=== PATIENT | female | born 1995 | race Caucasian/White ===

== ENCOUNTER → 2018-01-03 | Outpatient (CLI) | payer BC, OTHER ==
[2018-01-03 13:03] LABS: Glucose 3 Hour, Gest 148 mg/dL
== END | disposition home or self-care (01) ==
LOC: LABWHC1 08:39
PROVIDERS: ATTEND Obstetrics & Gynecology
DX: Z34.82 Encounter for supervision of other normal pregnancy, second trimester (principal); Z3A.00 Weeks of gestation of pregnancy not specified
CPT/HCPCS: 36415; 82951; 82952

== ENCOUNTER 2018-03-25 05:46 | Inpatient (IN) | payer BC ==
--- NOTE | 2018-03-25 06:08 | P.HPOB ---
History of Present Illness H&P Date: 03/25/18 Chief Complaint: Patient is requesting induction of labor. This patient is a pleasant 23-year-old 3 para 2 female estimated date of confinement 03/28/2018 estimated gestational age 39-4/7 weeks who presents to labor and delivery for requested induction of labor. Patient's care has been complicated by gestational diabetes however she has not required any medication and only diet control. Patient's been followed by maternal medicine and has had normal ultrasounds and testing. Patient is now requesting induction of labor at term with favorable cervix. Review of Systems Constitutional: Denies chills, Denies fever Ears, nose, mouth and throat: Denies headache, Denies sore throat Gastrointestinal: Reports heartburn Genitourinary: Reports Menstruation: Reports amenorrhea Past Medical History Past Medical History: No Reported History Additional Past Medical History / Comment(s): Obstetrical history: Patient has had 2 vaginal deliveries 6 lbs. 9 oz. and 8 lbs. 5 oz. History of Any Multi-Drug Resistant Organisms: None Reported Past Surgical History: No Surgical Hx Reported Past Anesthesia/Blood Transfusion Reactions: No Reported Reaction Past Psychological History: Anxiety Smoking Status: Former smoker Past Alcohol Use History: None Reported Past Drug Use History: None Reported Medications and Allergies Home Medications Medication Instructions Recorded Confirmed Type Control 1 tab PO DAILY 06/11/14 06/11/14 History methylPREDNISolone [Medrol] 4 mg PO DIRECTED #1 tab.ds.pk 06/11/14 Rx Allergies Allergy/AdvReac Type Severity Reaction Status Date / Time No Known Allergies Allergy Verified 06/11/14 01:53 Exam - OBG Physical Exam Abdomen: bowel sounds normal, no diffuse tenderness, no bruit present, no guarding noted, no hepatomegaly, no splenomegaly, no mass Vulva: both: normal Vagina: normal moisture, no discharge Cervix: Cervix most recently in the office was 2 cm dilated and 60% effaced. Cervix: no lesion, no discharge Uterus: enlarged (Fundal height is 39 cm.) Results blood work shows she is A positive, Rubella immune, RPR nonreactive, hepatitis B negative, HIV nonreactive, Glucola was 156 with an abnormal 3 hour gtt. Group B strep was negative. Ultrasounds have been normal. Most recent ultrasound 1 week ago showed estimated weight at 8 pounds. Assessment and Plan Assessment: This is a pleasant 23-year-old 3 para 2 female 39-4/7 weeks gestation who presents to labor and delivery for requested induction of labor. Plan is induction of labor and anticipate vaginal delivery. (1) Third trimester Current Visit: Yes Status: Acute Code(s): Z34.93 - ENCNTR FOR SUPRVSN OF NORMAL PREG, UNSP, THIRD TRIMESTER SNOMED Code(s): 06422163 (2) Gestational diabetes Current Visit: Yes Status: Acute Code(s): O24.419 - GESTATIONAL DIABETES MELLITUS IN , UNSP CONTROL SNOMED Code(s): 06334285 (3) Elective induction of labor planned Current Visit: Yes Status: Acute Code(s): BDY8790 - SNOMED Code(s): 954765184
[2018-03-25] MEDS ORDERED: METHYLERGONOVINE 0.2 MG/ML 1 ML AMP IM PRN (06:10)
[2018-03-25] MEDS ORDERED: TERBUTALINE 1 MG/ML VIAL SQ PRN (06:10)
[2018-03-25] MEDS ORDERED: CARBOPROST TROMETHAMINE 250 MCG/ML 1 ML AMP IM PRN (06:10)
[2018-03-25] MEDS ORDERED: LIDOCAINE 1% (PF) 10 MG/ML (30 ML SDV) SQ PRN (06:10)
[2018-03-25] MEDS ORDERED: OXYTOCIN 20 UNITS/1000 ML NS 1,000 ML IV SCH ×2 (06:10→16:57)
[2018-03-25] MEDS ORDERED: OXYTOCIN 10 UNIT/ML 1 ML VIAL IM PRN (06:10)
[2018-03-25] MEDS: LACTATED RINGERS 1,000 ML IV SCH ×3 (06:20→12:55)
[2018-03-25 06:24] LABS: Basophils % (A) 0 %; Eosinophils # (A) 0.2 k/uL (0-0.7); Eosinophils % (A) 2 %; HCT 35.9 % (34.0-46.0); HGB 12.3 gm/dL (11.4-16.0); Lymphocytes # (A) 2.2 k/uL (1.0-4.8); Lymphocytes % (A) 23 %; MCH 31.5 pg (25.0-35.0); MCHC 34.3 g/dL (31.0-37.0); MCV 91.9 fL (80.0-100.0); Mean Platelet Volume 7.7; Monocytes # (A) 0.5 k/uL (0-1.0); Monocytes % (A) 5 %; Neutrophils # (A) 6.5 k/uL (1.3-7.7); Neutrophils % (A) 68 %; Platelet Count 173 k/uL (150-450); Poikilocytosis Moderate; RBC 3.91 m/uL (3.80-5.40); RDW 15.3 % (11.5-15.5); WBC 9.5 k/uL (3.8-10.6)
[2018-03-25 06:35] LABS: Glucose,Whole Blood 87 mg/dL (75-99)
[2018-03-25 12:50] LABS: Hemoglobin A1C 4.2 % (4.0-6.0)
[2018-03-25] MEDS ORDERED: ROPIVACAINE 100 MG, fentaNYL (PF) 200 MCG in SODIUM CHLORIDE 0.9% 76 ML EPIDURAL ONE (13:04)
[2018-03-25] MEDS ORDERED: BUPIVACAINE (PF) 0.25% 30 ML VIAL ONE (13:05)
[2018-03-25] MEDS ORDERED: SODIUM CHLORIDE 0.9% 100 ML BAG ONE (13:05)
[2018-03-25] MEDS ORDERED: fentaNYL (PF) 50 MCG/ML 5 ML AMP ONE (13:05)
[2018-03-25] MEDS ORDERED: DIPH,PERTUS(ACELL)TETVAC-LF 0.5 ML VIAL IM ONE (13:10)
[2018-03-25] MEDS ORDERED: SIMETHICONE 80 MG CHEWABLE PO PRN (16:57)
[2018-03-25] MEDS ORDERED: HYDROCORTISONE 2.5% RECTAL CREAM 30 GM TUBE RECTAL PRN (16:57)
[2018-03-25] MEDS ORDERED: diphenhydrAMINE 25 MG CAP PO PRN (16:57)
[2018-03-25] MEDS ORDERED: ACETAMINOPHEN TAB 325 MG TAB PO PRN (16:57)
[2018-03-25] MEDS ORDERED: WITCH HAZEL 1 EACH MED..PAD TOPICAL PRN (16:57)
[2018-03-25] MEDS ORDERED: ZOLPIDEM 5 MG TAB PO PRN (16:57)
[2018-03-25] MEDS ORDERED: BENZOCAINE/MENTHOL SPRAY 1 GM/SPRAY AEROSOL TOPICAL PRN (16:57)
[2018-03-25] MEDS ORDERED: BISACODYL 10 MG SUPP RECTAL PRN (16:57)
[2018-03-25] MEDS ORDERED: diphenhydrAMINE 50 MG/ML 1 ML VIAL IVP PRN (16:57)
[2018-03-25] MEDS ORDERED: LANOLIN CREAM 5 GM TUBE TOPICAL PRN (16:57)
--- NOTE | 2018-03-25 16:59 | P.PROBDLV ---
Vaginal Delivery Note - . Vaginal Delivery Note: Normal vaginal delivery viable female Apgars 9 and 10 at 1641 hrs. Please see dictated H&P for intimate details of this patient's admission. Brief summary this is a pleasant 23-year-old 3 para 2 female 39-2/7 weeks gestation admitted to labor and delivery for induction of labor. Patient is admitted she is 2 cm dilated and artificial rupture membranes for clear fluid. Patient's labor is induced with Pitocin per protocol. Patient's labor progresses and she does get an epidural for pain control. She gets to complete pushes the head to the perineum. Posterior perineum is supported we have controlled delivery of the 's head over the intact perineum. Mouth and nares are bulb suctioned. There is a loose nuchal cord which is easily reduced. With gentle downward traction we then have deliver the anterior and posterior shoulder and rest this 's body. This is a vigorous viable female infant Apgars are 9 and 10 delivery time was 1641 hrs. After delivery of the the umbilical cord is doubly clamped and cut appears to be trivascular. This is done after the cord is done pulsating. The placenta is then spontaneously delivered intact. Estimated blood loss is 150 mL. No lacerations and no repairs required. All counts are correct 3. No complications.
[2018-03-25] MEDS: IBUPROFEN 600 MG TAB PO PRN (17:55)
[2018-03-25] MEDS: SENNOSIDES-DOCUSATE SODIUM 1 EACH TAB PO SCH ×2 (19:23→19:45)
[2018-03-26] MEDS: IBUPROFEN 600 MG TAB PO PRN ×3 (01:02→14:53)
--- NOTE | 2018-03-26 05:37 | P.PNOBGVD ---
Subjective - Subjective Patient reports: Reports appetite normal, Reports voiding normally, Reports pain well controlled, Reports ambulating normally : doing well Objective - Latest Vital Signs Latest vital signs: Vital Signs Temp Pulse Resp BP 03/26/18 04:00 97.4 F L 70 16 102/68 03/25/18 23:45 97.6 F 85 16 105/67 03/25/18 18:48 97.7 F 96 16 124/74 03/25/18 18:18 104 H 16 113/58 03/25/18 17:48 110 H 16 118/57 03/25/18 17:33 100 16 134/60 03/25/18 17:18 103 H 16 104/58 03/25/18 17:03 123 H 16 143/70 03/25/18 16:48 115 H 16 141/68 03/25/18 06:07 97.4 F L 94 16 127/81 Intake and Output 03/25/18 03/25/18 03/26/18 14:59 22:59 06:59 Intake Total 530.7 Output Total 150 Balance 380.7 Intake: Intake, IV Titration 530.7 Amount Oxytocin 20 Units/1000 ml 530.7 Ns 1,000 ml @ 1 MILLIUNIT/MIN 3 mls/hr IV .Q24H JOSE RAMON Rx#:[id number] Output: Estimated Blood Loss 150 Other: # Voids 1 1 # Bowel Movements 1 - Exam Lungs: bilateral: normal Chest: Normal S1, Normal S2 Extremities: Present: normal Abdomen: Present: normal appearance, soft Uterus: Present: normal, firm Assessment and Plan Assessment: Post day #1. Patient is resting without complaints and wishes to go home. Vital signs are stable she is afebrile. Uterus is firm nontender and she is having normal lochia. My impression is a normal course. Plan is to continue routine care discharge home later today. (1) Third trimester Current Visit: Yes Status: Acute Code(s): Z34.93 - ENCNTR FOR SUPRVSN OF NORMAL PREG, UNSP, THIRD TRIMESTER SNOMED Code(s): 59000499 (2) Gestational diabetes Current Visit: Yes Status: Acute Code(s): O24.419 - GESTATIONAL DIABETES MELLITUS IN , UNSP CONTROL SNOMED Code(s): 72761940 (3) Elective induction of labor planned Current Visit: Yes Status: Acute Code(s): FEV1105 - SNOMED Code(s): 405287094
--- NOTE | 2018-03-26 05:42 | P.DS ---
Providers Date of admission: 03/25/18 05:46 Expected date of discharge: 03/26/18 Attending physician: Luis Enrique Marrero Primary care physician: Stated None - Discharge Diagnosis(es) (1) Third trimester Current Visit: Yes Status: Acute (2) Gestational diabetes Current Visit: Yes Status: Acute (3) Elective induction of labor planned Current Visit: Yes Status: Acute Hospital Course: Please see dictated H&P for intimate details of this patient's admission. Brief summary this is a pleasant 23-year-old 3 para 2 female 39-2/7 weeks gestation admitted to labor and delivery for induction of labor. Patient is admitted has uncomplicated induction of labor goes on have a vaginal delivery viable female infant. Please see dictated delivery note. day #1 patient without complaints she wishes to go home felt be stable for discharge home follow up with me in 6 weeks. Procedures: Induction of labor and normal vaginal delivery. Patient Condition at Discharge: Good Plan - Discharge Summary New Discharge Prescriptions: New Ibuprofen [Motrin] 600 mg PO Q6HR PRN #40 tab PRN Reason: Mild Pain Or Fever >= 100.5 No Action Pnv No.95/Ferrous Fum/Folic AC [ Multivitamin Tablet] 1 tab PO DAILY Discharge Medication List Pnv No.95/Ferrous Fum/Folic AC [ Multivitamin Tablet] 1 tab PO DAILY [History] Ibuprofen [Motrin] 600 mg PO Q6HR PRN #40 tab 03/26/18 [Rx] Follow up Appointment(s)/Referral(s): Luis Enrique Marrero MD [STAFF PHYSICIAN] - 05/07/18 9:30 am Patient Instructions/Handouts: Vaginal Delivery (DC) Activity/Diet/Wound Care/Special Instructions: No intercourse or anything per vagina for 6 weeks. Please call if any fever, chills, excessive vaginal bleeding, and/or abdominal pain. Discharge Disposition: HOME SELF-CARE
[2018-03-26] MEDS: SENNOSIDES-DOCUSATE SODIUM 1 EACH TAB PO SCH (08:29)
[2018-03-26 16:43] VITALS: BP 110/71; PULSE 72; RESP 18; TEMP 97.7
== END 2018-03-26 18:10 | disposition home or self-care (01) | DRG 775 ==
LOC: 4FBP 05:46
PROVIDERS: ADMIT Obstetrics & Gynecology; ATTEND Obstetrics & Gynecology
PROC: 10E0XZZ Delivery of Products of Conception, External Approach (ICD-10-PCS; principal; 2018-03-25)
PROC: 3E0R3NZ Introduction of Analgesics, Hypnotics, Sedatives into Spinal Canal, Percutaneous Approach (ICD-10-PCS; principal; 2018-03-25)
PROC: 00HU33Z Insertion of Infusion Device into Spinal Canal, Percutaneous Approach (ICD-10-PCS; principal; 2018-03-25)
PROC: 3E033VJ Introduction of Other Hormone into Peripheral Vein, Percutaneous Approach (ICD-10-PCS; principal; 2018-03-25)
PROC: 10907ZC Drainage of Amniotic Fluid, Therapeutic from Products of Conception, Via Natural or Artificial Opening (ICD-10-PCS; principal; 2018-03-25)
DX: O24.420 Gestational diabetes mellitus in childbirth, diet controlled (principal); Z37.0 Single live birth; O69.81X0 Labor and delivery complicated by cord around neck, without compression, not applicable or unspecified; Z3A.39 39 weeks gestation of pregnancy; Z87.891 Personal history of nicotine dependence
CPT/HCPCS: 83036; 85025; 90715

== ENCOUNTER 2019-05-28 06:09 | Observation (INO) | payer BC, OTHER ==
[2019-05-28] MEDS: LACTATED RINGERS 1,000 ML IV SCH ×2 (06:23→12:54)
[2019-05-28 06:30] VITALS: BMI 29.2
[2019-05-28 06:41] LABS: Basophils % (A) 0 %; Eosinophils # (A) 0.2 k/uL (0-0.7); Eosinophils % (A) 2 %; HCT 41.9 % (34.0-46.0); HGB 14.5 gm/dL (11.4-16.0); Lymphocytes # (A) 2.6 k/uL (1.0-4.8); Lymphocytes % (A) 27 %; MCH 32.2 pg (25.0-35.0); MCHC 34.5 g/dL (31.0-37.0); MCV 93.3 fL (80.0-100.0); Mean Platelet Volume 6.5; Monocytes # (A) 0.4 k/uL (0-1.0); Monocytes % (A) 4 %; Neutrophils # (A) 6.3 k/uL (1.3-7.7); Neutrophils % (A) 65 %; Platelet Count 313 k/uL (150-450); Poikilocytosis Slight; RDW 14.1 % (11.5-15.5); WBC 9.8 k/uL (3.8-10.6)
[2019-05-28] MEDS: ACETAMINOPHEN TAB 325 MG TAB PO PRN ×2 (07:10→12:54)
[2019-05-28] MEDS: DIPHENOX-ATROP 2.5-0.025 MG 1 EACH TAB PO PRN ×2 (07:10→12:54)
[2019-05-28] MEDS: ONDANSETRON 4 MG/2 ML VIAL IVP PRN ×2 (07:10→12:54)
--- NOTE | 2019-05-28 07:14 | P.HPOB ---
History of Present Illness H&P Date: 05/28/19 Chief Complaint: demise 24 year old presented to office yesterday for anatomy US. She was supposed to be 19 weeks but measured 15 weeks and there was no heart rate. I placed laminaria last night and this morning she is ft/th/-3. She will undergo induction with hemabate today. Review of Systems All systems: negative Constitutional: Denies chills, Denies fever Eyes: denies blurred vision, denies pain Ears, nose, mouth and throat: Denies headache, Denies sore throat Cardiovascular: Denies chest pain, Denies shortness of breath Respiratory: Denies cough Gastrointestinal: Denies abdominal pain, Denies diarrhea, Denies nausea, Denies vomiting Genitourinary: Denies dysuria, Denies hematuria Musculoskeletal: Denies myalgias Integumentary: Denies pruritus, Denies rash Neurological: Denies numbness, Denies weakness Psychiatric: Denies anxiety, Denies depression Endocrine: Denies fatigue, Denies weight change Past Medical History Past Medical History: No Reported History Additional Past Medical History / Comment(s): Obstetrical history: Patient has had 3 vaginal deliveries. History of Any Multi-Drug Resistant Organisms: None Reported Past Surgical History: No Surgical Hx Reported Past Anesthesia/Blood Transfusion Reactions: No Reported Reaction Past Psychological History: Anxiety Smoking Status: Former smoker Past Alcohol Use History: None Reported Past Drug Use History: None Reported - Past Family History Mother Family Medical History: No Reported History Father Family Medical History: Coronary Artery Disease (CAD), Hypertension Medications and Allergies Home Medications Medication Instructions Recorded Confirmed Type Pedi Multivit No.25/Folic Acid 300 mcg PO DAILY 05/28/19 05/28/19 History [Flintstones Multivit Chew Tab] Allergies Allergy/AdvReac Type Severity Reaction Status Date / Time No Known Allergies Allergy Verified 05/28/19 06:18 Exam Osteopathic Statement: *. No significant issues noted on an osteopathic structural exam other than those noted in the History and Physical/Consult. Vital Signs Temp Pulse Resp BP Pulse Ox 05/28/19 06:26 97.1 F L 120 H 16 127/85 100 Intake and Output 05/27/19 05/28/19 05/28/19 22:59 06:59 14:59 Other: # Voids 1 Weight 74.843 kg HEart: RRR Lungs: CTAB ABdomen: soft, nontender Extremeties: neg regine's Results Result Diagrams: 05/28/19 06:25 Assessment and Plan (1) Missed with demise before 20 completed weeks of gestation Current Visit: Yes Status: Acute Code(s): O02.1 - MISSED SNOMED Code(s): 93019672 Plan: 1. induction of labor with hemabate
[2019-05-28] MEDS: CARBOPROST TROMETHAMINE 250 MCG/ML 1 ML AMP IM SCH ×4 (08:13→17:30)
[2019-05-28] MEDS ORDERED: BENZOCAINE/MENTHOL SPRAY 1 GM/SPRAY AEROSOL TOPICAL PRN (16:07)
[2019-05-28] MEDS ORDERED: SIMETHICONE 80 MG CHEWABLE PO PRN (16:07)
[2019-05-28] MEDS ORDERED: LANOLIN CREAM 5 GM TUBE TOPICAL PRN (16:07)
[2019-05-28] MEDS ORDERED: diphenhydrAMINE 25 MG CAP PO PRN (16:07)
[2019-05-28] MEDS ORDERED: diphenhydrAMINE 50 MG CAP PO PRN (16:07)
[2019-05-28] MEDS ORDERED: HYDROCORTISONE 2.5% RECTAL CREAM 30 GM TUBE RECTAL PRN (16:07)
[2019-05-28] MEDS ORDERED: ACETAMINOPHEN TAB 325 MG TAB PO PRN (16:07)
[2019-05-28] MEDS ORDERED: WITCH HAZEL 1 EACH MED..PAD TOPICAL PRN (16:07)
[2019-05-28] MEDS ORDERED: IBUPROFEN 600 MG TAB PO PRN (16:07)
[2019-05-28] MEDS ORDERED: ZOLPIDEM 5 MG TAB PO PRN (16:07)
[2019-05-28] MEDS ORDERED: OXYTOCIN 20 UNITS/1000 ML NS 1,000 ML IV SCH (16:15)
[2019-05-28 16:38] VITALS: RESP 18
--- NOTE | 2019-05-28 17:07 | P.PROBDLV ---
Vaginal Delivery Note - . Vaginal Delivery Note: The patient delivered a nonviable fetus at 1540 with placenta intact. Fetus appears to be a male fetus. There was what appeared to be an amniotic band wrapped around the right arm twice and delivered a umbilical cord was pulled into this area also. No other abnormalities are noted. Minimal bleeding was noted after delivery and no lacerations are noted. weight is 2.5 ounces.
--- NOTE | 2019-05-28 17:12 | P.DS ---
Providers Date of admission: 05/28/19 06:09 Expected date of discharge: 05/28/19 Attending physician: Deborah Frazier Primary care physician: Stated None Hospital Course: This is a 24-year-old female 4 para 3 who should've been 19 weeks 6 days by her dates but had an ultrasound in the office yesterday showing a demise measuring around 15-16 weeks. She underwent laminaria insertion last night and started on Hemabate induction this morning. She delivered a nonviable what appears to be male fetus at 1540 hrs. Her bleeding has been minimal. She is having some mild cramping. She was allowed to patrikc and hold the baby. She has arranged arrangements. Placenta will be sent for pathology. From gross visualization of the baby, it appeared there was an amniotic band wrapped around the right arm twice and the umbilical cord was pulled into this area. She is requesting to go home tonight. She will be given a prescription for ibuprofen. She is advised to follow-up with Dr. Marrero in the office in approximate 2 weeks for a follow-up. She is advised to call the office if she has any further questions or concerns prior to her appointment time. Procedures: Hemabate induction of labor Spontaneous vaginal delivery of a nonviable fetus before 20 weeks. Patient Condition at Discharge: Stable Plan - Discharge Summary New Discharge Prescriptions: New RX: Ibuprofen [Motrin] 600 mg PO Q6HR PRN #60 tab PRN Reason: Mild Pain Or Fever >= 100.5 No Action Pedi Multivit No.25/Folic Acid [Flintstones Multivit Chew Tab] 300 mcg PO DAILY Discharge Medication List Pedi Multivit No.25/Folic Acid [Flintstones Multivit Chew Tab] 300 mcg PO DAILY 05/28/19 [History] RX: Ibuprofen [Motrin] 600 mg PO Q6HR PRN #60 tab 05/28/19 [Rx] Follow up Appointment(s)/Referral(s): Luis Enrique Marrero MD [STAFF PHYSICIAN] - 2 Weeks Activity/Diet/Wound Care/Special Instructions: Activity as tolerated. Diet as tolerated. No intercourse until seen by Dr. Marrero. Patient advised to call the office if she has fever, excessive bleeding, or excessive pain. Discharge Disposition: HOME SELF-CARE
[2019-05-28 18:41] VITALS: BP 110/68; PULSE 83; TEMP 97.8
[2019-05-28] MEDS ORDERED: SENNOSIDES-DOCUSATE SODIUM 1 EACH TAB PO SCH (20:00)
== END 2019-05-28 19:07 | disposition home or self-care (01) ==
LOC: 4FBP 06:09 → INTOOBSV 06:09 → UNDODISIN 19:07
PROVIDERS: ADMIT Obstetrics & Gynecology; ATTEND Obstetrics & Gynecology
PROC: 10D17ZZ Extraction of Products of Conception, Retained, Via Natural or Artificial Opening (ICD-10-PCS; principal; 2019-05-28)
PROC: 3E033VJ Introduction of Other Hormone into Peripheral Vein, Percutaneous Approach (ICD-10-PCS; 2019-05-28)
DX: O02.1 Missed abortion (principal); Z3A.19 19 weeks gestation of pregnancy; O99.344 Other mental disorders complicating childbirth; F41.9 Anxiety disorder, unspecified; Z87.891 Personal history of nicotine dependence; Z82.49 Family history of ischemic heart disease and other diseases of the circulatory system
CPT/HCPCS: 59855; 86900; 86901; 88305; 85025; 86850; G0378; G0379; J2405

== ENCOUNTER → 2019-09-02 | Outpatient (CLI) | payer OTHER ==
--- NOTE | 2019-09-02 17:16 | ECHOF ---
Referral Reason:R00.0 tachycardia MEASUREMENTS -------- HEIGHT: 160.0 cm WEIGHT: 74.8 kg BP: 128/81 RVIDd: 2.5 cm (< 3.3) IVSd: 0.8 cm (0.6 - 1.1) LVIDd: 4.0 cm (3.9 - 5.3) LVPWd: 0.8 cm (0.6 - 1.1) IVSs: 1.2 cm LVIDs: 2.7 cm LVPWs: 1.5 cm LA Diam: 3.1 cm (2.7 - 3.8) LAESV Index (A-L): 17.74 ml/m Ao Diam: 2.6 cm (2.0 - 3.7) AV Cusp: 1.9 cm (1.5 - 2.6) MV EXCURSION: 18.036 mm (> 18.000) MV EF SLOPE: 105 mm/s (70 - 150) EPSS: 0.9 cm MV E Gaudencio: 0.66 m/s MV DecT: 234 ms MV A Gaudencio: 0.55 m/s MV E/A Ratio: 1.20 FINDINGS -------- Sinus rhythm. This was a technically excellent study. The left ventricular size is normal. Left ventricular wall thickness is normal. Overall left vent ricular systolic function is normal with, an EF between 60 - 65 %. The right ventricle is normal in size. Normal LA size by volume 22+/-6 ml/m2. The right atrium is normal in size. Interatrial and interventricular septum intact. The aortic valve is trileaflet and appears structurally normal. There is trace mitral regurgitation. The tricuspid valve appears structurally normal. Trace/mild (physiologic) pulmonic regurgitation. The aortic root size is normal. Normal inferior vena cava with normal inspiratory collapse consistent with estimated right atrial pre ssure of 5 mmHg. There is no pericardial effusion. CONCLUSIONS -------- 1. Sinus rhythm. 2. This was a technically excellent study. 3. The left ventricular size is normal. 4. Left ventricular wall thickness is normal. 5. Overall left ventricular systolic function is normal with, an EF between 60 - 65 %. 6. The right ventricle is normal in size. 7. Normal LA size by volume 22+/-6 ml/m2. 8. The right atrium is normal in size. 9. Interatrial and interventricular septum intact. 10. The aortic valve is trileaflet and appears structurally normal. 11. There is trace mitral regurgitation. 12. The tricuspid valve appears structurally normal. 13. Trace/mild (physiologic) pulmonic regurgitation. 14. The aortic root size is normal. 15. Normal inferior vena cava with normal inspiratory collapse consistent with estimated right atrial pressure of 5 mmHg. 16. There is no pericardial effusion. FINANCIAL SERVICES COUNSELOR: LAURA Francisco
== END | disposition home or self-care (01) ==
LOC: RADECHMAIN 11:47
PROVIDERS: ATTEND Family Medicine
DX: I09.89 Other specified rheumatic heart diseases (principal)
CPT/HCPCS: 93270; 93306

== ENCOUNTER → 2020-03-18 | Outpatient (CLI) | payer OTHER ==
--- NOTE | 2020-03-18 12:41 | US ---
EXAMINATION TYPE: US abdomen complete DATE OF EXAM: 03/18/2020 COMPARISON: NONE CLINICAL HISTORY: R10.13 epigastric pain. RUQ pain EXAM MEASUREMENTS: Liver Length: 13.9 cm Gallbladder Wall: .2 cm CBD: .3 cm Spleen: 11.2 cm Right Kidney: 10.4 x 3.6 x 3.8 cm Left Kidney: 11.1 x 5.1 x 4.1 cm Pancreas: wnl. Tail of pancreas obscured by bowel gas Liver: wnl Gallbladder: Multiple stones seen Evidence for sonographic Lovelace's sign: No CBD: wnl Spleen: wnl Right Kidney: wnl Left Kidney: wnl Upper IVC: wnl Abd Aorta: wnl IMPRESSION: 1. Cholelithiasis.
== END | disposition home or self-care (01) ==
LOC: RADUSWWP 10:05
PROVIDERS: ATTEND Family Medicine
DX: K80.20 Calculus of gallbladder without cholecystitis without obstruction (principal)
CPT/HCPCS: 76700

== ENCOUNTER 2020-04-26 08:17 | Day surgery (SDC) | payer OTHER ==
[2020-04-22 14:19] VITALS: BMI 31.5
[~2020-04-26 08:17] MED LIST: ACETAMINOPHEN TAB 500 MG TAB PO ONE; DEXAMETHASONE SOD PHOSPHATE 10 MG/ML 1 ML VIAL IV ONE; HEPARIN SODIUM,PORCINE 5,000 UNIT/ML 1 ML VIAL SQ ONE; LACTATED RINGERS 1,000 ML IV SCH; LIDOCAINE 1% (10MG/ML) FOR IV START INTRADERMA PRN; ONDANSETRON 4 MG/2 ML VIAL IVP ONE; SCOPOLAMINE 1.5MG/72HR PATCH TRANSDERM ONE
[2020-04-26] MEDS ORDERED: ONDANSETRON 4 MG/2 ML VIAL ONE (08:51)
[2020-04-26] MEDS ORDERED: ACETAMINOPHEN TAB 500 MG TAB ONE (08:51)
[2020-04-26] MEDS ORDERED: HEPARIN SODIUM,PORCINE 5,000 UNIT/ML 1 ML VIAL ONE (08:51)
[2020-04-26] MEDS ORDERED: MIDAZOLAM 2 MG/2 ML VIAL IV ONE (09:06)
--- NOTE | 2020-04-26 09:09 | P.GSHP ---
History of Present Illness H&P Date: 04/26/20 Chief Complaint: Right upper quadrant pain This a 25-year-old female with recurrent quadrant pain. Patient's found have evidence of cholelithiasis. She presents today for laparoscopic cholecystectomy Past Medical History Past Medical History: GERD/Reflux Additional Past Medical History / Comment(s): gallbladder disorders History of Any Multi-Drug Resistant Organisms: None Reported Past Surgical History: No Surgical Hx Reported Past Anesthesia/Blood Transfusion Reactions: No Reported Reaction Smoking Status: Former smoker - Past Family History Mother Family Medical History: Cancer, Diabetes Mellitus, Thyroid Disorder Father Family Medical History: Coronary Artery Disease (CAD), Hypertension Medications and Allergies Home Medications Medication Instructions Recorded Confirmed Type Etonogestrel/Ethinyl Estradiol 1 each VG Q30D 04/22/20 04/26/20 History [Nuvaring Vaginal Ring] Omeprazole 20 mg PO DAILY 04/22/20 04/26/20 History Allergies Allergy/AdvReac Type Severity Reaction Status Date / Time No Known Allergies Allergy Verified 04/26/20 08:31 Surgical - Exam Vital Signs Temp Pulse Resp BP Pulse Ox 98.0 F 125 H 16 168/80 98 04/26/20 08:34 04/26/20 08:34 04/26/20 08:34 04/26/20 08:34 04/26/20 08:34 - General well developed, well nourished, no distress - Eyes PERRL - ENT normal pinna - Neck no masses - Respiratory normal expansion - Cardiovascular Rhythm: regular - Abdomen Abdomen: soft, non tender Assessment and Plan Assessment: Quadrant pain Cholelithiasis We'll perform laparoscopic cholecystectomy
[2020-04-26] MEDS ORDERED: fentaNYL (PF) 50 MCG/ML 2 ML AMP ONE (09:20)
[2020-04-26] MEDS ORDERED: HYDROmorphone (PF) 1 MG/ML ONE (09:20)
[2020-04-26] MEDS ORDERED: ROCURONIUM BROMIDE 10 MG/ML 5 ML VIAL IV ONE (09:20)
[2020-04-26] MEDS ORDERED: MIDAZOLAM 2 MG/2 ML VIAL ONE (09:20)
[2020-04-26] MEDS ORDERED: KETOROLAC 30 MG/ML 1 ML VIAL ONE (09:20)
[2020-04-26] MEDS ORDERED: LIDOCAINE 1% INJ 10MG/ML (20 ML MDV) ONE (09:20)
[2020-04-26] MEDS ORDERED: PROPOFOL 10 MG/ML 20 ML VIAL IV ONE ×2 (09:20)
[2020-04-26] MEDS ORDERED: BUPIVACAIN-EPI 0.25%-1:200,000 30 ML VIAL SQ ONE (09:40)
[2020-04-26] MEDS: HYDROmorphone 0.5 MG/0.5 ML SYRINGE IVP PRN ×3 (10:11→10:36)
--- NOTE | 2020-04-26 10:12 | P.OP ---
Date of Procedure: 04/26/20 Preoperative Diagnosis: Cholelithiasis Postoperative Diagnosis: Cholelithiasis Procedure(s) Performed: Laparoscopic cholecystectomy Anesthesia: NATHAN Surgeon: Nabil Coelho Estimated Blood Loss (ml): 5 Pathology: other (Gallbladder) Condition: stable Disposition: PACU Description of Procedure: The patient was placed on the operating table. The patient received a general endotracheal tube anesthesia. The patients abdomen was prepped and draped in the usual sterile fashion. Through an infraumbilical stab incision, the fascia of the anterior abdominal wall was grasped with a pair of Kochers and then the Veress needle was placed in the peritoneal cavity. Position of the Veress needle was confirmed with positive drop test. The abdomen was then insufflated. After adequate insufflation, the 10 mm trocar was placed in the peritoneal cavity. Following this the laparoscope was placed in the peritoneal cavity. The patient was placed in the head-up, right side up position and then a 5 mm trocar was placed in the right lateral and right subcostal position under direct visualization. A 8 mm trocar was placed in the epigastric position. The gallbladder was grasped in the fundus and infundibulum. Traction on the gallbladder was placed in the lateral and the cephalad positions. The triangle of Calot was visualized.. The cystic duct was bluntly dissected until the union of the cystic duct and common bile duct was seen. A critical view of safety was achieved. The cystic duct was then divided and sealed with the Harmonic scissors. A PDS Endoloop was then placed throughout the cystic duct stump. The cystic artery divided and sealed with the Harmonic scissors. The gallbladder was then removed from the liver bed using Harmonic scissors. The gallbladder was then extracted through the epigastric port site. Operative field was checked for any bleeding spots and Harmonic scissors was used to coagulate the liver bed. The abdomen was irrigated. The trocars were removed. The skin was closed using interrupted 3-0 Vicryl suture. Dermabond dressing were applied. The patient tolerated the procedure well.
[2020-04-26 10:16] VITALS: TEMP 97.3
[2020-04-26 11:46] VITALS: BP 111/67; PULSE 67; RESP 18
== END 2020-04-26 12:00 | disposition home or self-care (01) ==
LOC: OR 08:17
PROVIDERS: ATTEND Surgery
DX: K80.10 Calculus of gallbladder with chronic cholecystitis without obstruction (principal); K21.9 Gastro-esophageal reflux disease without esophagitis; Z79.3 Long term (current) use of hormonal contraceptives; Z79.899 Other long term (current) drug therapy; Z87.891 Personal history of nicotine dependence; Z83.3 Family history of diabetes mellitus; Z82.49 Family history of ischemic heart disease and other diseases of the circulatory system
CPT/HCPCS: 81025; 88304; 47562; J2250; J1644; J1100; J0690; J2405; J2001; J3010; J1885; J1170 ×2; J2704